=== PATIENT | male | born 1960 | race African-American/Black ===

== ENCOUNTER 2019-11-13 14:40 | Emergency (ER) | payer MEDICAID ==
[~2019-11-13] VITALS: Ht 185.4 cm; Wt 96.8 kg
[~2019-11-13 14:40] MED LIST: "\\\"CHOLESTEROL MED\\\"" PO; ASPI-650 PO; OXYC20TA2 PO
[2019-11-13] MEDS ORDERED: LIDOCAINE-MPF 1%, 5ML INFIL ONE (15:00)
[2019-11-13] MEDS ORDERED: DIPH,PERTUSS(ACELL),TET VAC/PF 0.5 ML IM-VACC ONE ×3 (15:00→15:18)
[2019-11-13] MEDS ORDERED: LIDOCAINE-MPF 1%, 5ML ONE (15:03)
[2019-11-13] MEDS ORDERED: CEPHALEXIN 500 MG CAPSULE ONE (15:18)
[2019-11-13] MEDS ORDERED: CEPHALEXIN 500 MG CAPSULE PO ONE (15:30)
[2019-11-13 16:02] VITALS: BP 124/74
== END 2019-11-13 16:05 | disposition home or self-care (01) ==
LOC: ED 15:45
DX: S61.211A Laceration without foreign body of left index finger without damage to nail, initial encounter (principal); W45.8XXA Other foreign body or object entering through skin, initial encounter; Y93.89 Activity, other specified; Y92.098 Other place in other non-institutional residence as the place of occurrence of the external cause; Y99.8 Other external cause status
CPT/HCPCS: 12042; 90471; 90715; 99284